=== PATIENT | female | born 1950 | race Caucasian/White ===

== ENCOUNTER 2016-11-15 08:18 | Emergency (ER) | payer MEDICARE, MEDICAID ==
--- NOTE | 2016-11-15 08:46 | ED Physician Chart ---
Chief Complaint/HPI - Patient Information Date Seen:: 11/15/16 Time Seen:: 08:40 Chief Complaint:: G-TUBE REPLACEMENT History of Present Illness:: THIS IS A 66 YO FEMALE CHRONICALLY ILL SENT HERE FOR REPLACEMENT OF HER G-TUBE. SHE HAS MENTAL PROBLEMS BECAUSE OF HER ENCEPHALOPATHY. SHE ALSO HAS DIABETES MELLITUS,COPD AND A PSYCH DISORDER. THIS PATIENT REFUSED MORE BLOOD DRAWING. Allergies:: Allergies Allergy/AdvReac Type Severity Reaction Status Date / Time No Known Allergies Allergy Verified 11/15/16 08:20 Vitals:: Vital Signs - 8 hr 11/15/16 08:21 Temp 98.4 F HR 72 RR 16 BP 120/72 O2 Sat % 98 Historian:: Patient, EMS, Medical Records Review:: Nurse's Note Reviewed, Transfer documents Reviewed Review of Systems - Review of Systems General/Constitutional: No fever, No chills, No weight loss, No weakness, No diaphoresis, No edema, No loss of appetite Skin: No skin lesions, No rash, No bruising Head: No headache, No light-headedness Eyes: No loss of vision, No pain, No diplopia ENT: No earache, No nasal drainage, No sore throat, No tinnitus Neck: No neck pain, No swelling, No thyromegaly, No stiffness, No mass noted Cardio Vascular: No chest pain, No palpitations, No PND, No orthopnea, No edema Pulmonary: No SOB, No cough, No sputum, No wheezing GI: No nausea, No vomiting, No diarrhea, No pain, No melena, No hematochezia, No constipation, No hematemesis, Other (G-TUBE IS OUT) G/U: No dysuria, No frequency, No hematuria Musculoskeletal: No bone or joint pain, No back pain, No muscle pain Endocrine: No polyuria, No polydipsia Psychiatric: No prior psych history, No depression, No anxiety, No suicidal ideation Hematopoietic: No bruising, No lymphadenopathy Allergic/Immuno: No urticaria, No angioedema Neurological: No syncope, No focal symptoms, No weakness, No paresthesia, No headache, No seizure, No dizziness, No confusion, No vertigo Past Medical History - Past Medical History Obtainable: Yes Past Medical History: DM, Asthma/COPD, CVA/TIA, Other (PSYCHOSIS) Family History: None Social History: Non Smoker, No Alcohol, No Drug Use, Care Facility Surgical History: PEG/GTube Psychiatricy History: Dementia Medication: Reviewed Family Medical History - Family Member Mother History Unknown: Yes Physical Exam - Physical Examination General/Constitutional: Awake, Well-developed, well-nourished, Alert, No distress, GCS 15, Non-toxic appearing, Ambulatory Other Gen/Cons comments:: CONFUSED AT TIMES Head: Atraumatic Eyes: Lids, conjuctiva normal, PERRL, EOMI Skin: Nl inspection, No rash, No skin lesions, No ecchymosis, Well hydrated, No lymphadenopathy ENMT: External ears, nose nl, Nasal exam nl, Lips, teeth, gums nl Neck: Nontender, Full ROM w/o pain, No JVD, No nuchal rigidity, No bruit, No mass, No stridor Respiratory: Nl effort/Exclusion, Clear to Auscultation, No Wheeze/Rhonchi/Rales Cardio Vascular: RRR, No murmur, gallop, rubs, NL S1 S2 GI: No tenderness/rebounding/guarding, No organomegaly, No hernia, Normal BS's, Nondistended, No mass/bruits, No McBurney tenderness Other GI comments:: G-TUBE SITE IS OPEN. : No CVA tenderness Extremities: No tenderness or effusion, Full ROM, normal strength in all extremities, No edema, Normal digits & nails Neuro/Psych: Alert/oriented, DTR's symmetric, Normal sensory exam, Normal motor strength, Judgement/insight normal, Mood normal, Normal gait, No focal deficits Misc: normal gait, Normal back, No paraspinal tenderness Labs/Radiology/EKG Results - Radiology Results Results: KUB = G-TUBE IN THE STOMACH Assessment - Assessment General Assessment: G-TUBE REPLACEMENT - Procedures Procedures:: G-TUBE REPLACED WITHOUT DIFFICULTY AND FUNCTIONING NORMALLY. ED Septic Shock - . Is Septic Shock (SBP<90, OR Lactate>4 mmol\L) present?: No - <6hrs of presentation: Vital Signs: Vital Signs - 8 hr 11/15/ 08:21 Temp 98.4 F HR 72 RR 16 BP 120/72 O2 Sat % 98 Reassessment (Disposition) - Reassessment Reassessment Condition:: Improved - Diagnosis Diagnosis:: G-TUBE REPLACEMENT - Aftercare/Follow up Instructions Aftercare/Follow-Up Instructions:: Counseled pt regarding lab results/diagnosis & need follow up, Refer to Discharge Instructions, Counseled pt & family regarding lab results/diagnosis & need follow up - Patient Disposition Discharge/Transfer:: THE TUBE WAS REPLACED WITHOUT COMPLICATIONS. Condition at Disposition:: Stable ED Discharge Plan - Patient Disposition Admit/Discharge/Transfer: PT DISCHARGED HOME Condition at Disposition: Improved
[2016-11-15] MEDS ORDERED: Diatrizoate Meglumine/Diatri 30 mL Sol PO ONE (09:01)
--- NOTE | 2016-11-15 13:09 | Diagnostic Imaging Report ---
Upper GI (Limited) HISTORY: Gastrostomy tube placement Water-soluble contrast was instilled through the patient's gastrostomy tube. There is opacification of the gastric lumen. IMPRESSION: 1. Confirmation of gastrostomy tube within the gastric lumen.
== END 2016-11-15 10:35 ==
LOC: ER 08:18
DX: Z43.1 Encounter for attention to gastrostomy (principal); E11.9 Type 2 diabetes mellitus without complications; J45.909 Unspecified asthma, uncomplicated; J44.9 Chronic obstructive pulmonary disease, unspecified; Z86.73 Personal history of transient ischemic attack (TIA), and cerebral infarction without residual deficits; Z93.1 Gastrostomy status
CPT/HCPCS: Z7502; Z7610

== ENCOUNTER 2016-11-23 17:41 | Emergency (ER) | payer MEDICARE, MEDICAID ==
--- NOTE | 2016-11-23 17:54 | ED Physician Chart ---
Chief Complaint/HPI - Patient Information Date Seen:: 11/23/16 Time Seen:: 17:40 Chief Complaint:: DISLODGED G-TUBE. History of Present Illness:: PT PULLED G-TUBE OUT FOR NO REASON. Allergies:: Allergies Allergy/AdvReac Type Severity Reaction Status Date / Time No Known Allergies Allergy Verified 11/15/16 08:20 Historian:: EMS, Medical Records Family MD/PCP:: HARD COPY OF NURSING TRIAGE NOTES REVIEWED. Review of Systems - Review of Systems General/Constitutional: No fever, No chills, No edema (`) Skin: No skin lesions, No bruising Head: No headache ENT: No earache Neck: No neck pain, No mass noted Cardio Vascular: No chest pain, No palpitations, No edema Pulmonary: No SOB, No cough, No sputum GI: No nausea, No vomiting, No diarrhea, No pain G/U: No dysuria, No frequency Musculoskeletal: No bone or joint pain, No back pain Psychiatric: Prior psych history, No suicidal ideation Hematopoietic: No bruising, No lymphadenopathy Neurological: No syncope, No weakness, No headache, No seizure Past Medical History - Past Medical History Past Medical History: HTN, DM, Asthma/COPD, PUD/GERD, Seizures Social History: Single, Care Facility Family Medical History - Family Member Mother History Unknown: Yes Physical Exam - Physical Examination General/Constitutional: Awake, Well-developed, well-nourished, Alert, No distress, Non-toxic appearing Head: Atraumatic Eyes: Lids, conjuctiva normal, PERRL, EOMI Skin: No rash, No ecchymosis, No lymphadenopathy ENMT: TM canals nl, Nasal exam nl, Oropharynx nl Other ENMT comments:: POOR DENTAL HYGENE WITH BROKEN TEETH Neck: Nontender, No JVD, No nuchal rigidity, No mass Respiratory: Nl effort/Exclusion, Clear to Auscultation, No Wheeze/Rhonchi/Rales Cardio Vascular: RRR, No murmur, gallop, rubs, NL S1 S2 Other Cardio Vascular comments:: ADEQUATE PULSES IN ALL 4 EXTREMITIES GI: No tenderness/rebounding/guarding, No hernia, Normal BS's, No McBurney tenderness : No CVA tenderness Extremities: No tenderness or effusion, Full ROM, No edema Other Extremities comments:: MOVES ALL 4 EXTREMITIES. Other Neuro/Psych comments:: ALERT AND ORIENTED ORIENTED TO NAME, PLACE AND "OCTOBER 22 SOMETHING." Labs/Radiology/EKG Results - Lab Results Results: KUB WITH AND WITHOUT GASTRO-GRAFIN INJECTION: TUBE IN STOMACH. NO FREE AIR. NO EVIDENCE OF AIR FLUID LEVELS. Assessment - Assessment General Assessment: CASE SUMMARY: Patient dislodged Her G-tube. G-tube same size was reinserted without difficulty. Tolerated the procedure well. Gastrografin injection of the tube confirmed placement of being inside the GI tract. PT SENT BACK TO NURSING FACILITY. ED Septic Shock - . Is Septic Shock (SBP<90, OR Lactate>4 mmol\\L) present?: No Reassessment (Disposition) - Reassessment Reassessment Condition:: Improved - Diagnosis Diagnosis:: DISLODGED G-TUBE (RESOLVED), HISTORY OF BIPOLAR DISORDER, COPD, DIABETES, SEIZURE DISORDER. - Patient Disposition Discharge/Transfer:: Organizational Effectiveness Consultant Care - SNF ED Discharge Plan - Patient Disposition Admit/Discharge/Transfer: Discharge/Transfered to SNF Condition at Disposition: Improved Instructions: Gastric Tube Replacement
[2016-11-23] MEDS ORDERED: Diatrizoate Meglumine/Diatri 30 mL Sol ONE (18:02)
--- NOTE | 2016-11-24 11:14 | Diagnostic Imaging Report ---
Exam: KUB HISTORY: G-tube placement Findings Upon injection of contrast material gastrostomy tube the study demonstrates normal progression of contrast material into the stomach. IMPRESSION: Gastrostomy tube in the stomach
== END 2016-11-23 18:20 ==
LOC: ER 17:41
DX: Z43.1 Encounter for attention to gastrostomy (principal); F31.9 Bipolar disorder, unspecified; J44.9 Chronic obstructive pulmonary disease, unspecified; E11.9 Type 2 diabetes mellitus without complications; G40.909 Epilepsy, unspecified, not intractable, without status epilepticus; I10 Essential (primary) hypertension; J45.909 Unspecified asthma, uncomplicated; K21.9 Gastro-esophageal reflux disease without esophagitis
CPT/HCPCS: Z7502